=== PATIENT | female | born 1990 | race Two or more races ===

== ENCOUNTER 2017-10-07 09:34 | Emergency (ER) | payer BC, OTHER ==
--- NOTE | 2017-10-07 09:44 | CPEKG ---
Heart Rate: 84 RR Interval: 714 P-R Interval: 144 QRSD Interval: 92 QT Interval: 380 QTC Interval: 450 P [place]: 75 QRS [place]: 62 T Wave [place]: 25 EKG Severity - NORMAL ECG - EKG Impression: SINUS RHYTHM Electronically Signed By: Jose Velez 07-Oct-2017 13:01:14
[2017-10-07] MEDS ORDERED: NS 1,000 ML IV ONE (09:46)
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
[2017-10-07 10:47] LABS: PLATELET COUNT 388 10^3/uL (150-400)
[2017-10-07 12:44] VITALS: BP 94/53
== END 2017-10-07 12:42 | disposition home or self-care (01) ==
DX: E86.0 Dehydration (principal); D64.9 Anemia, unspecified; E16.2 Hypoglycemia, unspecified; E86.9 Volume depletion, unspecified